=== PATIENT | male | born 1995 | race Two or more races ===

== ENCOUNTER 2018-08-27 07:18 | Day surgery (SDC) | payer BC ==
[~2018-08-27] VITALS: Ht 170.2 cm; Wt 95.9 kg
[~2018-08-27 07:18] MED LIST: BUPIVACAINE/PF-EPI 0.5% 1:200K ONE; FENTANYL PF 250 MCG/5ML ONE; LIDOCAINE 1%-EPI 1:100K, 30ML ONE; MIDAZOLAM 1 MG/ML, 2ML ONE; NONE PER PT
[2018-08-27 07:38] VITALS: BP 127/86
[2018-08-27] MEDS ORDERED: LACTATED RINGERS 1,000 ML IV SCH (07:42)
[2018-08-27] MEDS ORDERED: SUCCINYLCHOLINE 20 MG/ML, 10ML ONE (09:05)
[2018-08-27] MEDS ORDERED: CEFAZOLIN 1,000 MG ONE (09:05)
[2018-08-27] MEDS ORDERED: ONDANSETRON 2MG/ML, 2ML ONE (09:05)
[2018-08-27] MEDS ORDERED: DEXAMETHASONE 4 MG/ML, 1ML ONE (09:05)
[2018-08-27] MEDS ORDERED: PROPOFOL 10 MG/ML, 20ML ONE (09:05)
[2018-08-27] MEDS ORDERED: LIDOCAINE 1%-EPI 1:100K, 30ML INFIL ONE (09:39)
[2018-08-27] MEDS ORDERED: BUPIVACAINE/PF-EPI 0.5% 1:200K INFIL ONE (09:40)
[2018-08-27] MEDS ORDERED: MEPERIDINE/PF 50 MG/ML ONE (10:14)
[2018-08-27] MEDS ORDERED: hydrALAzine 20 MG/ML, 1ML IV PRN (10:30)
[2018-08-27] MEDS ORDERED: LABETALOL 5MG/ML, 20ML IV PRN (10:30)
[2018-08-27] MEDS ORDERED: HYDROmorphone 1 MG/ML, 1ML IV PRN (10:30)
[2018-08-27] MEDS ORDERED: MIDAZOLAM 1 MG/ML, 2ML IV PRN (10:30)
[2018-08-27] MEDS ORDERED: OXYcodone 5 MG/5 ML ORAL.SOL UDC PO PRN (10:30)
[2018-08-27] MEDS ORDERED: ALBUTEROL SULFATE 2.5 MG/3 ML NPPB PRN (10:30)
[2018-08-27] MEDS ORDERED: ACETAMINOPHEN 325 MG TABLET PO PRN (10:30)
[2018-08-27] MEDS ORDERED: MEPERIDINE/PF 25MG/0.5ML IVPush PRN (10:30)
[2018-08-27] MEDS ORDERED: PROMETHAZINE 25 MG/ML, 1ML IV PRN (10:30)
[2018-08-27] MEDS ORDERED: ACETAMINOPHEN 650 MG/20.3 ML UDC ONE (10:39)
[2018-08-27] MEDS ORDERED: OXYcodone 5 MG/5 ML ORAL.SOL UDC ONE (10:39)
[2018-08-27] MEDS ORDERED: FENTANYL PF 100 MCG/2ML ONE (10:39)
[2018-08-27] MEDS: FENTANYL PF 100 MCG/2ML IV PRN ×2 (10:45→11:00)
== END 2018-08-27 13:25 | disposition home or self-care (01) ==
LOC: OUT 07:18
PROVIDERS: ATTEND Orthopaedic Surgery
DX: M19.011 Primary osteoarthritis, right shoulder (principal); S43.491A Other sprain of right shoulder joint, initial encounter; M75.41 Impingement syndrome of right shoulder; X58.XXXA Exposure to other specified factors, initial encounter; Y93.89 Activity, other specified; Y92.89 Other specified places as the place of occurrence of the external cause; Y99.8 Other external cause status; F17.210 Nicotine dependence, cigarettes, uncomplicated; J45.909 Unspecified asthma, uncomplicated; Z98.890 Other specified postprocedural states; Z79.899 Other long term (current) drug therapy
CPT/HCPCS: 29822; 29824; 29826; 64415; J0330; J0690; J1100; J2175; J2250; J2405; J2704; J3010; J3490; J7120

== ENCOUNTER 2020-05-09 11:58 | Emergency (ER) | payer BC, OTHER ==
[~2020-05-09] VITALS: Ht 170.2 cm; Wt 96.9 kg
[~2020-05-09 11:58] MED LIST changes: -BUPIVACAINE/PF-EPI 0.5% 1:200K ONE; -FENTANYL PF 250 MCG/5ML ONE; -LIDOCAINE 1%-EPI 1:100K, 30ML ONE; -MIDAZOLAM 1 MG/ML, 2ML ONE
--- NOTE | 2020-05-09 12:42 | NUR ---
PT TO RM FROM [facility] AT THIS TIME, PT WITH STEADY GAIT.
--- NOTE | 2020-05-09 12:47 | NUR ---
PT WITH C/O RLQ ABD PAIN BEGINNING LAST NIGHT INTERMITTANTLY, PT STATES IT H/ BECOME MORE FREQUENT THIS AM, PT DENIES N/V/D. STATES HE HAS BEEN CONSTIPATED LBM 05/09 BUT WAS VERY HARD.
[2020-05-09] MEDS ORDERED: SODIUM CHLORIDE 0.9% 1,000ML IVBOLUS ONE (13:00)
[2020-05-09] MEDS ORDERED: ONDANSETRON 2MG/ML, 2ML IVPush ONE (13:00)
[2020-05-09] MEDS ORDERED: SODIUM CHLORIDE FLUSH 10ML SYR IVF ONE (13:00)
[2020-05-09] MEDS ORDERED: MORPHINE SULFATE 4 MG/ML, 1ML IVPush PRN (13:00)
--- NOTE | 2020-05-09 13:02 | NUR ---
UA COLLECTED AND SENT TO LAB
[2020-05-09] MEDS ORDERED: MORPHINE SULFATE 4 MG/ML, 1ML ONE (13:05)
[2020-05-09] MEDS ORDERED: ONDANSETRON 2MG/ML, 2ML ONE (13:05)
[2020-05-09 13:14] LABS: BASOPHILS # (AUTO) 0.03 x10^3/uL (0-0.1); BASOPHILS % (AUTO) 0 % (0-1); EOSINOPHILS # (AUTO) 0.24 x10^3/uL (0-0.4); EOSINOPHILS % (AUTO) 3 % (1-7); LYMPHOCYTES # (AUTO) 3.03 x10^3/uL (1-3.4); LYMPHOCYTES % (AUTO) 40 % (22-44); MD NO; MEAN CORPUSCULAR HEMOGLOBIN 31.4 pg (27.5-34.5); MEAN CORPUSCULAR HGB CONC 33.5 g/dL (33.2-36.2); MEAN CORPUSCULAR VOLUME 93.8 fL (81-97); MEAN PLATELET VOLUME 9.4 fL (7.4-10.4); MONOCYTES # (AUTO) 0.82 x10^3/uL (0.2-0.8); MONOCYTES % (AUTO) 11 % (2-9); NEUTROPHILS # (AUTO) 3.41 x10^3/uL (1.8-6.8); NEUTROPHILS % (AUTO) 45 % (42-75); PLATELET COUNT 192 x10^3/uL (130-400); RED BLOOD COUNT 4.94 x10^6/uL (4.38-5.82); RED CELL DISTRIBUTION WIDTH 13.9 % (9.4-14.8)
[2020-05-09 13:27] LABS: ALANINE AMINOTRANSFERASE 39 U/L (12-78); ANION GAP 7 mmol/L (5-15); CALCIUM 8.6 mg/dL (8.5-10.1); CHLORIDE 107 mmol/L (98-107); CREATININE 0.94 mg/dL (0.7-1.3)
[2020-05-09 13:29] LABS: ALKALINE PHOSPHATASE 64 U/L (45-117); BILIRUBIN,TOTAL 0.3 mg/dL (0.2-1.0); TOTAL PROTEIN 7.5 g/dL (6.4-8.2)
[2020-05-09 13:33] LABS: MICROSCOPIC NOT IND
[2020-05-09 13:54] VITALS: BP 121/71
--- NOTE | 2020-05-09 13:54 | NUR ---
TASK RN: PAIN AND NAUSEA IMPROVED SINCE MEDICATED AND AWAITING CT
--- NOTE | 2020-05-09 14:13 | NUR ---
PT TO CT AT THIS TIME
[2020-05-09] MEDS ORDERED: OMNIPAQUE 350 MG/ML, 100ML BOTTLE ONE (14:20)
== END 2020-05-09 14:55 | disposition home or self-care (01) ==
LOC: ED 13:16
DX: K59.00 Constipation, unspecified (principal); R10.31 Right lower quadrant pain; R50.9 Fever, unspecified; R11.0 Nausea; F17.210 Nicotine dependence, cigarettes, uncomplicated
CPT/HCPCS: 36415; 74177; 80053; 81003; 85025; 96361; 96374; 96375; 99285; J2270; J2405; J7030; Q9967

== ENCOUNTER 2021-03-05 00:24 | Emergency (ER) | payer SELFPAY ==
[~2021-03-05] VITALS: Ht 170.2 cm; Wt 99.5 kg
[2021-03-05 00:37] VITALS: BP 140/97
== END 2021-03-05 02:39 | disposition home or self-care (01) ==
LOC: ED 02:10
DX: S62.234A Other nondisplaced fracture of base of first metacarpal bone, right hand, initial encounter for closed fracture (principal); F17.200 Nicotine dependence, unspecified, uncomplicated; Y04.8XXA Assault by other bodily force, initial encounter; Y93.89 Activity, other specified; Y92.410 Unspecified street and highway as the place of occurrence of the external cause; Y99.8 Other external cause status
CPT/HCPCS: 29125; 99283